=== PATIENT | female | born 1970 | race American Indian/Alaskan Native ===

== ENCOUNTER 2017-05-04 06:37 | Day surgery (SDC) | payer MEDICARE ==
[~2017-05-04 06:37] MED LIST: ANCEF/STERILE WATER 2 GM/20 ML 2 GM/20 ML SYRINGE IV NR; NACL 0.9% 1000 ML 1,000 ML ONE
[2017-05-04] MEDS ORDERED: HEPARIN 10,000 UNITS/10 ML ONE (08:13)
[2017-05-04] MEDS ORDERED: HEPARIN/NS 5000 UNIT/500ML(CATH LAB) 500 ML IR ONE (08:13)
[2017-05-04] MEDS ORDERED: ANCEF/STERILE WATER 2 GM/20 ML 0 GM/0 ML SYRINGE IV ONE (08:14)
[2017-05-04] MEDS ORDERED: XYLOCAINE 2% INFILTRATI ONE (08:14)
[2017-05-04] MEDS ORDERED: NACL 0.9% 250ML 250 ML ONE (08:44)
[2017-05-04 08:57] LABS: BUN/Creatinine Ratio 15; Blood Urea Nitrogen 16 mg/dL (7-17); Calcium 11.1 mg/dL (8.4-10.2); Hemolysis Index 27
[2017-05-04] MEDS: SUBLIMAZE ONE ×3 (09:30→10:04)
[2017-05-04] MEDS: VERSED ONE ×3 (09:30→10:04)
--- NOTE | 2017-05-04 10:23 | Short Stay Summary ---
Short Stay Documentation Date of service: 05/04/17 Narrative H&P: 46 year old female with ESRD s/p renal transplant with SVC syndrome presenting for fistulogram through prior access. - History Principal diagnosis: SVC syndrome H&P: obtained from office - Allergies and Medications Current Medications: Allergies vancomycin Allergy (Verified 12/08/15 10:17) Hives Home Medications Medication Instructions Recorded Confirmed Last Taken Type Carvedilol [Coreg] 25 mg PO DAILY 08/19/13 05/04/17 05/04/17 06:00 History Cinacalcet HCl [Sensipar] 60 mg PO DAILY 08/19/13 05/04/17 05/03/17 21:00 History Zolpidem [Ambien] 5 mg PO QHS PRN 08/19/13 05/04/17 1 Week Ago History ~04/27/17 AtorvaSTATin [Lipitor] 20 mg PO QHS 05/04/17 05/04/17 05/03/17 History Insulin Aspart [NovoLOG Flexpen] 5 units SQ AC 05/04/17 05/04/17 05/03/17 History Insulin Glargine,Hum.rec.anlog 20 units SQ QHS 05/04/17 05/04/17 05/03/17 History [Lantus] Magnesium Oxide [Mag-Ox] 400 mg PO QDAY 05/04/17 05/04/17 05/03/17 History Mycophenolate [Cellcept] 1,000 mg PO BID 05/04/17 05/04/17 05/03/17 History Prednisone [predniSONE (Elizabeth) ER 5 mg PO QDAY 05/04/17 05/04/17 05/03/17 History TAB] Tacrolimus [Prograf] 3 cap PO BID 05/04/17 05/04/17 05/03/17 History Tolterodine Tartrate [Detrol] 4 mg PO DAILY 05/04/17 05/04/17 05/03/17 History Active Medications Cefazolin Sodium (Ancef/Sterile Water 2 Gm/20 Ml) 2 gm in 20 mls @ 80 mls/hr IV PREOP NR; Protocol Stop: 05/04/17 23:00 - Physical exam General appearance: no acute distress HEENT: Other (Swelling head and neck and left arm) - Brief post op/procedure progress note Date of procedure: 05/04/17 Pre-op diagnosis: SVC syndrome Post-op diagnosis: same Procedure: Angioplasty of the SVC Anesthesia: local (w/ conscious sedation) Surgeon: KAYKAY DC Estimated blood loss: minimal Condition: stable - Hospital course Hospital course: Tolerated procedure well. Ready for discharge in 30 minutes. - Disposition Condition at discharge: Stable Disposition: DC-01 TO HOME OR SELFCARE - Discharge Diagnoses (1) SVC (superior vena cava obstruction) Status: Acute Short Stay Discharge Plan Activity: advance as tolerated Weight Bearing Status: Weight Bear as Tolerated Diet: renal Wound: keep clean and dry Follow up with: ANA PAULA DYER MD [Primary Care Provider] - 7 Days
--- NOTE | 2017-05-04 10:27 | Operative Report ---
Operative Report Operative Report: EXAM: 1. Ultrasound guided access of the left arm AV fistula towards the venous outflow 2. Selection of the right innominate vein with CO2 angiography 3. Angioplasty of the right innominate vein and subclavian vein with an 8 mm x 2 cm cutting angioplasty balloon 4. Angioplasty of the right innominate vein and subclavian vein with a 12 mm x 6 cm angioplasty balloon 5. Contrast injection to the sheath for final evaluation DATE: 05/04/17 RECRUITING COORDINATOR: KAYKAY DC MD INDICATION: SVC syndrome with symptomatic swelling of the head and neck, and left arm MEDICATIONS: Please see nursing report for full details. DEVICES: 8 mm x 2 cm cutting angioplasty balloon 8 mm x 6 cm angioplasty balloon PROCEDURE: The risks, benefits, and alternatives of the procedure were discussed and written informed consent was obtained. The patient was transported in stable condition to the angiography suite. The patient's left arm AV brachiocephalic fistula was assessed by ultrasound and was patent. The patient was prepped and draped in a sterile fashion. Under ultrasound guidance, the left arm AV brachiocephalic fistula was accessed with a 21-gauge micropuncture needle. The area was anesthetized prior to access. 0.018 inch wire was advanced through the micropuncture needle into the fistula and then the needle was exchanged for a 5 Dominican transitional dilator. The inner dilator and wire were removed and a 0.035 inch wire was advanced through the venous outflow. The transitional dilator was exchanged for a 7 Dominican short sheath. Angled catheter was advanced over the wire and used to select the left subclavian and innominate vein and CO2 angiography was performed. This demonstrated moderate narrowing of the central portion of the left subclavian vein, peripheral portion of the innominate vein, and central portion of the innominate vein with severe narrowing of the midportion of the innominate vein. The SVC was patent. Robust collaterals passed into the left internal jugular vein. Catheter was passed into the IVC and the V18 wire was passed into the IVC. 8 mm x 2 cm cutting angioplasty balloon was used to perform angioplasty throughout the length of the left innominate vein and central left subclavian vein. 12 mm x 6 cm angioplasty balloon was used to perform angioplasty throughout the length of the left innominate vein into the SVC and central left subclavian vein Digital subtraction angiography was performed demonstrating 30% residual narrowing throughout the length of the left innominate vein with resolution of the narrowing of the left subclavian vein. Most of the flow went into the SVC. The wire was removed and the site was closed with a 3-0 Vicryl suture. The sheath was then removed. Hemostasis was achieved with slight manual compression. The patient was transported from the angiography suite to the recovery area in stable condition. IMPRESSION: Successful fistulogram and venoplasty as descibed above with a 8 mm x 2 cm cutting angioplasty balloon and 12 mm x 6 cm angioplasty balloon. Successful treatment of the left innominate vein and left subclavian vein.
[2017-05-04] MEDS ORDERED: ZOFRAN IV NR (10:42)
[2017-05-04] MEDS ORDERED: DUONEB *Not for PRN Use IH ONE (11:00)
[2017-05-04 11:47] VITALS: BP 105/65
== END 2017-05-04 13:40 | disposition home or self-care (01) ==
LOC: CATHLABREC 06:37
PROVIDERS: ATTEND Radiology Diagnostic Radiology
DX: I87.1 Compression of vein (principal); I12.0 Hypertensive chronic kidney disease with stage 5 chronic kidney disease or end stage renal disease; E11.22 Type 2 diabetes mellitus with diabetic chronic kidney disease; N18.6 End stage renal disease; Z79.899 Other long term (current) drug therapy; Z79.4 Long term (current) use of insulin
CPT/HCPCS: 36415; 36902; 80048; 82962; 84132; 94640; 99156; 99157; C1725; C1751; C1769; C1894; J1644; J2250; J2405; J3010; J7030; J7050; J0690; Q9967

== ENCOUNTER 2019-12-31 07:29 | Day surgery (SDC) | payer MEDICARE ==
[2019-12-31] MEDS ORDERED: SODIUM CHLORIDE 0.9% 1000 ML 1,000 ML ONE (11:37)
[2019-12-31] MEDS ORDERED: SODIUM CHLORIDE 0.9% 1000 ML 1,000 ML IV SCH (12:00)
[2019-12-31 12:15] LABS: BUN/Creatinine Ratio 21; Blood Urea Nitrogen 23 mg/dL (7-17); Calcium 11.3 mg/dL (8.4-10.2); Hemolysis Index 53
[2019-12-31] MEDS ORDERED: HEPARIN/NS 5000 UNIT/500ML 500 ML IR ONE (12:24)
[2019-12-31] MEDS ORDERED: HEPARIN 10,000 UNITS/10 ML VIAL ONE (12:24)
[2019-12-31] MEDS ORDERED: fentaNYL 100 MCG/2 ML INJ ONE (12:25)
[2019-12-31] MEDS ORDERED: MIDAZOLAM 2 MG/2 ML INJ ONE (12:25)
[2019-12-31] MEDS ORDERED: ceFAZolin/Water 2 GM/20 ML 2 GM/20 ML SYRINGE IV ONE (12:35)
--- NOTE | 2019-12-31 13:00 | Short Stay Summary ---
Short Stay Documentation Date of service: 12/31/19 Narrative H&P: 49-year-old female with past medical history of SVC syndrome, end-stage renal disease status post renal transplant, who presents with recurrent SVC syndrome. - History Principal diagnosis: SVC syndrome, AV fistula malfunction H&P: obtained from office - Allergies and Medications Current Medications: Allergies vancomycin Allergy (Verified 12/08/15 10:17) Hives Home Medications Medication Instructions Recorded Confirmed Last Taken Type carvediloL [Coreg] 25 mg PO DAILY 08/19/13 12/31/19 12/31/19 04:00 History 1 tab AtorvaSTATin [Lipitor] 20 mg PO DAILY 05/04/17 12/31/19 12/31/19 04:00 History 1 tab Insulin Aspart (Nf) [NovoLOG 5 units SQ AC 05/04/17 12/31/19 12/30/19 History Flexpen] Insulin Glargine,Hum.rec.anlog 30 units SQ QHS 05/04/17 12/31/19 12/30/19 History [Lantus] Mycophenolate [Cellcept] 250 mg PO BID 05/04/17 12/31/19 12/31/19 04:00 History 1 cap Prednisone [predniSONE (Elizabeth) ER 5 mg PO QDAY 05/04/17 12/31/19 12/31/19 History TAB] 1 tab Tacrolimus [Prograf] 3 cap PO BID 05/04/17 12/31/19 12/31/19 04:00 History 3 caps Famotidine [Acid Controller] 20 mg PO BID 12/31/19 12/31/19 12/31/19 History 0400 Zolpidem [Ambien] 5 mg PO QHS PRN 12/31/19 12/31/19 Unknown History gemfibroziL [Lopid] 600 mg PO BID 12/31/19 12/31/19 12/31/19 04:00 History 1 tab Active Medications Sodium Chloride (Nacl 0.9% 1000 Ml) 1,000 mls @ 250 mls/hr IV DIRECT JHONNY Last Admin: 12/31/19 12:14 Dose: 250 mls/hr Documented by: - Physical exam General appearance: mild distress (Head and neck swelling) Lungs: Normal air movement Heart: Regular rate Gastrointestinal: normal Extremities: normal temperature, normal color - Brief post op/procedure progress note Date of procedure: 12/31/19 Pre-op diagnosis: SVC syndrome Post-op diagnosis: same Procedure: Central dialysis access angioplasty Anesthesia: local (With conscious sedation) Surgeon: KAYKAY DC Estimated blood loss: minimal Condition: stable - Hospital course Hospital course: Tolerated procedure well. No immediate postprocedural complications. - Disposition Condition at discharge: Stable Disposition: DC-01 TO HOME OR SELFCARE - Discharge Diagnoses (1) Complication of vascular access for dialysis Status: Acute (2) Kidney failure Status: Acute (3) SVC (superior vena cava obstruction) Status: Acute (4) Stenosis of arteriovenous dialysis fistula Status: Acute Short Stay Discharge Plan Activity: advance as tolerated Weight Bearing Status: Weight Bear as Tolerated Diet: regular Wound: keep clean and dry Follow up with: NAWAF SAN MD [Primary Care Provider] - 7 Days
[2019-12-31] MEDS ORDERED: methylPREDNISolone Sod Succinate 125 MG/2 ML INJ ONE (13:24)
[2019-12-31] MEDS ORDERED: diphenhydrAMINE 50 MG/ML VIAL ONE (13:24)
[2019-12-31] MEDS ORDERED: FAMOTIDINE 20 MG/2 ML INJ IV ONE ×2 (13:27→13:31)
[2019-12-31] MEDS: LIDOCAINE 1%/EPINEPHRINE 1:100,000 VIAL (20 ML) INFILTRATI ONE ×2 (13:28→13:53)
[2019-12-31] MEDS ORDERED: hydrALAZINE 20 MG/1 ML INJ ONE (13:51)
[2019-12-31] MEDS ORDERED: ONDANSETRON 4 MG/2 ML INJ ONE (13:53)
--- NOTE | 2019-12-31 14:20 | Operative Report ---
Operative Report Operative Report: EXAM: 1. Ultrasound guided access of the left arm brachiocephalic AV fistula 2. Placement of a 7 Kazakh sheath, upsized to 12 Fr 3. Fistulogram 4. Selection of the IVC 5. Angioplasty of the left subclavian and brachiocephalic vein with an 8 mm x 2 cm cutting balloon 6. Angioplasty of the left subclavian vein and brachiocephalic vein with a 12 mm x 4 cm iNPACT angioplasty balloon DATE: 12/31/2019 PLATFORM LOADER: KAYKAY DC MD INDICATION: End-stage renal disease s/p renal transplant with symptomatic SVC syndrome CONTRAST: Prehydrated with IV fluid per protocol and provided a total of 20 mL contrast during the procedure. MEDICATIONS: Please see nursing report for full details. DEVICES: 8 mm x 2 cm cutting angioplasty balloon 12 mm x 6 cm angioplasty balloon PROCEDURE: The risks, benefits, and alternatives of the procedure were discussed and written informed consent was obtained. The patient was transported in stable condition to the angiography suite. The patient's left arm AV brachiocephalic was assessed by ultrasound and was patent. The patient was prepped and draped in a sterile fashion. Under ultrasound guidance, the left arm AV brachiocephalic fistula was accessed with a 21-gauge micropuncture needle. The area was anesthetized prior to access. 0.018 inch wire was advanced through the micropuncture needle into the fistula and then the needle was exchanged for a 5 Kazakh transitional dilator. The inner dilator and wire were removed and a 0.035 inch wire was advanced t hrough the venous outflow. The transitional dilator was exchanged for a 7 Kazakh short sheath. Fistulogram was performed of the venous outflow and central veins. The cephalic vein demonstrated some aneurysmal change but was of excellent caliber except for a 30% narrowing at the cephalic arch. The left subclavian vein demonstrated some mild narrowing in the central portion of the vein, and th e left innominate vein was 99% narrowed centrally. The SVC was patent. Wire and catheter were then manipulated through the left innominate vein narrowing and the IVC. Wire was exchanged for a 0.018 inch wire and the catheter was removed. 8 mm cutting balloon was advanced over the wire and cutting balloon angioplasty was performed along the left innominate vein in the left subclavian vein. Afterwards, 12 mm x 4 cm angioplasty balloon was used to perform angioplasty of the central portion of the left subclavian vein and the innominate vein. Digital subtraction angiography was then performed demonstrating 10 to 20% residual narrowing of the subclavian vein and innominate vein. The wire and catheters were removed and the site was closed with a 3-0 Vicryl suture. The sheath was then removed. Hemostasis was achieved with slight manual compression. The patient was transported from the angiography suite to the floor in stable condition. IMPRESSION: Successful fistulogram and central dialysis access angioplasty as descibed above with a 8 mm cutting angioplasty balloon and 12 mm angioplasty balloon.
[2019-12-31] MEDS ORDERED: ACETAMINOPHEN 500 MG TAB PO ONE (14:30)
[2019-12-31 14:46] VITALS: BP 148/93
== END 2019-12-31 15:32 | disposition home or self-care (01) ==
LOC: CATHLABREC 07:29
PROVIDERS: ATTEND Radiology Diagnostic Radiology
DX: T82.590A Other mechanical complication of surgically created arteriovenous fistula, initial encounter (principal); T82.858A Stenosis of other vascular prosthetic devices, implants and grafts, initial encounter; I12.0 Hypertensive chronic kidney disease with stage 5 chronic kidney disease or end stage renal disease; E11.22 Type 2 diabetes mellitus with diabetic chronic kidney disease; N18.6 End stage renal disease; I87.1 Compression of vein; Z83.3 Family history of diabetes mellitus; Z94.0 Kidney transplant status; Z88.8 Allergy status to other drugs, medicaments and biological substances; Z98.890 Other specified postprocedural states; Z79.4 Long term (current) use of insulin; Z79.899 Other long term (current) drug therapy; Z84.1 Family history of disorders of kidney and ureter; Z82.49 Family history of ischemic heart disease and other diseases of the circulatory system; Y83.8 Other surgical procedures as the cause of abnormal reaction of the patient, or of later complication, without mention of misadventure at the time of the procedure; Y92.89 Other specified places as the place of occurrence of the external cause
CPT/HCPCS: 36415; 36901; 36907; 76937; 80048; 82962; 84132; C1725; C1769; C1894; J0360; J0690; J1200; J1644; J2250; J2405; J2930; J3010; J7030; 96360; 96361; Q9967